=== PATIENT | female | born 1990 | race Caucasian/White ===

== ENCOUNTER 2018-07-18 05:19 | Emergency (ER) | payer BC ==
[~2018-07-18] VITALS: Ht 172.7 cm; Wt 109.2 kg
[2018-07-18 05:28] VITALS: BP 141/93
[2018-07-18] MEDS ORDERED: methylPREDNISolone sod succ 125mg/2ml vial IV ONE (06:20)
[2018-07-18] MEDS ORDERED: PRED10TA23 PO ×2 (06:22→06:33)
[2018-07-18] MEDS ORDERED: ondansetron 4mg rapidly disintigrating tab PO ONE (06:40)
[2018-07-18] MEDS ORDERED: methylPREDNISolone sod succ 125mg/2ml vial IM ONE (06:55)
== END 2018-07-18 07:05 | disposition home or self-care (01) ==
LOC: ER 05:20
DX: H05.223 Edema of bilateral orbit (principal); Z88.5 Allergy status to narcotic agent; Z88.6 Allergy status to analgesic agent; Z79.899 Other long term (current) drug therapy
CPT/HCPCS: 96374; 99283; J2930